=== PATIENT | female | born 1940 | race Caucasian/White ===

== ENCOUNTER 2021-07-27 09:44 | Emergency (ER) | payer MEDICARE, BC ==
[~2021-07-27] VITALS: Ht 157.5 cm; Wt 65.8 kg
[2021-07-27] MEDS ORDERED: KETOROLAC 30MG VIAL (30MG/ML) IM SCH (11:00)
[2021-07-27] MEDS ORDERED: HYDROCODONE/ACETAMINOPHEN 5/325 MG TAB PO SCH (11:00)
[2021-07-27] MEDS ORDERED: NAPR375T6 PO (11:44)
[2021-07-27 12:45] VITALS: BP 159/74
== END 2021-07-27 12:47 | disposition home or self-care (01) ==
LOC: EDH 09:44
DX: M54.16 Radiculopathy, lumbar region (principal); M41.86 Other forms of scoliosis, lumbar region; I10 Essential (primary) hypertension; M19.90 Unspecified osteoarthritis, unspecified site; Z79.1 Long term (current) use of non-steroidal anti-inflammatories (NSAID); Z88.1 Allergy status to other antibiotic agents
CPT/HCPCS: 72100; 96372; 99283; J1885